=== PATIENT | female | born 1955 | race Caucasian/White ===

== ENCOUNTER 2017-03-15 10:42 | Outpatient (CLI) | payer MEDICARE, MEDICAID ==
[2016-08-30 08:13] VITALS: O2SAT 98
== END 2017-03-15 10:43 | disposition home or self-care (01) | DRG 561 ==
LOC: CONVCARE 10:42
PROVIDERS: ATTEND Orthopaedic Surgery
DX: S42.302D Unspecified fracture of shaft of humerus, left arm, subsequent encounter for fracture with routine healing (principal); M25.512 Pain in left shoulder
CPT/HCPCS: 73030